=== PATIENT | female | born 2005 | race Caucasian/White ===

== ENCOUNTER 2024-03-17 03:37 | Emergency (ER) | payer MEDICAID, OTHER ==
[~2024-03-17 03:37] MED LIST: PREN-68 PO
[2024-03-17 04:12] LABS: MEAN CORPUSCULAR HEMOGLOBIN 31.4 pg (27.0-33.0); MEAN CORPUSCULAR HGB CONC 35.4 g/dL (32.0-36.0); MEAN CORPUSCULAR VOLUME 88.8 fL (80-100); RED BLOOD CELL COUNT(AUTO) 4.39 MIL/uL (4.00-5.50); RED CELL DISTRIBUTION WIDTH 11.8 % (11.0-15.5); WHITE BLOOD COUNT (AUTO) 8.2 K/uL (4.8-10.8)
[2024-03-17 04:17] LABS: APPEARANCE,URINE CLEAR (CLEAR); BILIRUBIN,URINE NEGATIVE (NEGATIVE); COLOR,URINE LIGHT-YELLOW (YELLOW); GLUCOSE, URINE (UA) NEGATIVE (NEGATIVE); KETONES,URINE 5 mg/dL (NEGATIVE); LEUKOCYTE ESTERASE ,URINE NEGATIVE Leu/uL (NEGATIVE); NITRATE,URINE NEGATIVE (NEGATIVE); OCCULT BLOOD,URINE NEGATIVE (NEGATIVE); PH,URINE 5.5 (5.0-8.0); PROTEIN,URINE NEGATIVE (NEGATIVE); UROBILINOGEN,URINE 0.2 mg/dL (0.2-1.0)
[2024-03-17 04:18] LABS: ADD UA MICROSCOPIC YES
[2024-03-17 04:19] LABS: HCG,QUALITATIVE URINE NEGATIVE (NEGATIVE)
[2024-03-17 04:20] LABS: BACTERIA,URINE FEW /HPF (None Seen); MUCUS,URINE RARE LPF (None Seen); RBC,URINE 0-1 /HPF (0-1); SQUAMOUS EPITHELIAL CELL,UR RARE /HPF (0-2)
[2024-03-17 04:22] LABS: CARBON DIOXIDE 22 mmol/L (21-32); CHLORIDE 104 mmol/L (101-111); CREATININE 0.6 mg/dL (0.5-1.0); GLOMERULAR FILTR. RATE CALC 131 mL/min (>90); GLUCOSE,RANDOM 88 mg/dL (70-105); POTASSIUM 3.4 mmol/L (3.5-5.1); SODIUM SERUM 139 mmol/L (136-145); UREA NITROGEN, BLOOD 5 mg/dL (7-18)
[2024-03-17 04:24] LABS: AMPHET/METH SCREEN,URINE NEGATIVE (NEGATIVE); BARBITURATE SCREEN, URINE NEGATIVE (NEGATIVE); BENZODIAZEPINES SCREEN,URINE NEGATIVE (NEGATIVE); CANNABINOID SCREEN,URINE NEGATIVE (NEGATIVE); COCAINE SCREEN,URINE POSITIVE (NEGATIVE); OPIATE SCREEN,URINE NEGATIVE (NEGATIVE); PHENCYCLIDINE SCREEN,URINE NEGATIVE (NEGATIVE)
[2024-03-17 04:26] LABS: ALCOHOL, BLOOD 247 mg/dL (0-10)
[2024-03-17 04:27] LABS: ACETAMINOPHEN < 1 mcg/mL (10-30); SALICYLATE < 2.8 mg/dL (2.8-20.0)
--- NOTE | 2024-03-17 04:32 | ERN ---
ED Note History of Present Illness Stated Complaint: POSSIBLE ALCOHOL POISONING OR DRUG INTOXICATION Chief Complaint: Other Problems Time Seen by MD: 03:50 Dictation: This is a 19-year-old female who apparently was with her boyfriend partying and consuming alcohol. She began getting agitated and tearful and her boyfriend called the patient's sister to come and get her. They brought her to the [facility] room for evaluation Allergies: Coded Allergies: No Known Drug Allergies (Unverified Allergy, Unknown, 07/15/19) no known drug allergies Home Meds Reported Medications Vit/Iron Fumarate/FA ( Tablet) 1 Each Tablet, 1 EACH PO HS, TAB 07/16/19 Past Medical History Past Medical History: No Pertinent History, Unknown Surgical History: Unknown Social History: Drugs, ETOH RN Note Reviewed/Agreed w/PFSH: Yes Review of System Dictation Constitutional: Negative for fever,chills, and weight loss Eyes: Negative for injury, pain,redness, and discharge ENT: Negative for injury,pain or swelling Cardiovascular: Negative for chest pain, palpitations, and edema Respiratory: Negative for shortness of breath, cough, and wheezing, Abdomen/GI: Negative for abdominal pain, nausea, vomiting, diarrhea, and constipation Back: Negative for injury and pain : Negative for injury, bleeding and discharge MS/Extremity: Negative for injury and deformity Skin: Negative for rash, and discoloration Neuro: Negative for headache, weakness, numbness, tingling, and seizure Psych: Negative for suicide ideation, homicidal ideation, and hallucinations Initial Vital Sign VS Vital Signs Date Time Temp Pulse Resp B/P (MAP) Pulse Ox O2 Delivery O2 Flow Rate FiO2 03/17/24 04:00 98.2 77 28 116/80 100 Room Air* 0 21 Physical Exam Dictation General: awake, alert, NAD Head/Face: Normocephalic, atraumatic Eyes: PERRL, EOMI, vision at baseline ENT: oral cavity clear, TMs clear, no signs of infection Neck: Trachea midline, supple, no nuchal rigidity Cardiovascular: RRR, normal S1/S2, No MRGs, no JVD Respiratory: CTAB, no respiratory distress, No rales or wheezes Abdomen: Soft, non-tender, non-distended, normal bowel sounds, no guarding or rebound. Skin: Warm, dry, normal turgor, no rash MS/Extremity: Pulses equal, no cyanosis, neurovascular intact, FROM Neuro: COAx4, GCS 15, strength 5/5, CN 2-12 intact, normal cerebellar exam, normal gait, Psych: Normal behavior, mood, and affect normal Extremities-trace edema without any palpable cords, Homans sign is negative Results (Laboratory/Radiology) Laboratory/Radiology Laboratory Tests Test 03/17/24 03:53 03/17/24 03:58 White Blood Count 8.2 K/uL (4.8-10.8) Red Blood Count 4.39 MIL/uL (4.00-5.50) Hemoglobin 13.8 g/dL (12.0-16.0) Hematocrit 39.0 % (36-48) Mean Corpuscular Volume 88.8 fL (80-100) Mean Corpuscular Hemoglobin 31.4 pg (27.0-33.0) Mean Corpuscular Hemoglobin Concent 35.4 g/dL (32.0-36.0) Red Cell Distribution Width 11.8 % (11.0-15.5) Platelet Count 305 K/uL (130-400) Mean Platelet Volume 9.4 fL (7.5-10.5) Nucleated Red Blood Cells 0.0 % (0.0-0.19) Sodium Level 139 mmol/L (136-145) Potassium Level 3.4 mmol/L (3.5-5.1) L Chloride Level 104 mmol/L (101-111) Carbon Dioxide Level 22 mmol/L (21-32) Blood Urea Nitrogen 5 mg/dL (7-18) L Creatinine 0.6 mg/dL (0.5-1.0) Glomerular Filtration Rate Calc 131 mL/min (>90) Random Glucose 88 mg/dL (70-105) Total Calcium 8.8 mg/dL (8.5-10.1) Salicylates Level < 2.8 mg/dL (2.8-20.0) L Acetaminophen Level < 1 mcg/mL (10-30) L Serum Alcohol 247 mg/dL (0-10) H Urine Color LIGHT-YELLOW (YELLOW) Urine Appearance CLEAR (CLEAR) Urine pH 5.5 (5.0-8.0) Urine Specific [place] 1.010 (1.001-1.031) Urine Protein NEGATIVE mg/dL (NEGATIVE) Urine Glucose (UA) NEGATIVE mg/dL (NEGATIVE) Urine Ketones 5 mg/dL (NEGATIVE) H Urine Occult Blood NEGATIVE (NEGATIVE) Urine Nitrate NEGATIVE (NEGATIVE) Urine Bilirubin NEGATIVE mg/dL (NEGATIVE) Urine Urobilinogen 0.2 mg/dL (0.2-1.0) Urine Leukocyte Esterase NEGATIVE [place]/uL Urine RBC 0-1 /HPF (0-1) Urine WBC 2-5 /HPF (0-1) H Urine Squamous Epithelial Cells RARE /HPF (0-2) Urine Bacteria FEW /HPF (None Seen) Urine HCG, Qualitative NEGATIVE (NEGATIVE) Urine Opiates Screen NEGATIVE (NEGATIVE) Urine Barbiturates Screen NEGATIVE (NEGATIVE) Urine Phencyclidine Screen NEGATIVE (NEGATIVE) Urine Amphetamines Screen NEGATIVE (NEGATIVE) Urine Benzodiazepines Screen NEGATIVE (NEGATIVE) Urine Cocaine Screen POSITIVE (NEGATIVE) H Urine Marijuana (THC) Screen NEGATIVE (NEGATIVE) Labs Reviewed?: Yes ED Course ED Course Orders Procedure Category Date Status Time Cbc Without LAB 03/17/24 Complete Differential 03:54 Alcohol, Blood LAB 03/17/24 Complete 03:54 Drug Screen Urine LAB 03/17/24 Complete 03:54 Urinalysis Profile LAB 03/17/24 Complete 03:54 Acetaminophen LAB 03/17/24 Complete 03:54 Salicylate LAB 03/17/24 Complete 03:54 ,Urine Test LAB 03/17/24 Complete 03:54 Basic Metabolic Panel LAB 03/17/24 Complete 03:54 0.9%Nacl 1000ml (Ns PHA 03/17/24 In Process 1000ml) 05:00 Current Medications Medications (Trade) Dose Ordered Sig/Jimy Route PRN Reason Start Time Stop Time Status Last Admin Dose Admin Sodium Chloride 1,000 ml @ 125 mls/hr ONCE ONCE IV 03/17/24 05:00 03/17/24 12:59 03/17/24 05:02 Vital Signs Date Time Temp Pulse Resp B/P (MAP) Pulse Ox O2 Delivery O2 Flow Rate FiO2 03/17/24 07:14 98.2 98 18 96/59 98 Room Air* 0 21 03/17/24 06:28 91 19 104/62 100 Room Air* 0 21 03/17/24 05:30 88 28 99/58 100 Room Air* 0 21 03/17/24 04:00 98.2 77 28 116/80 100 Room Air* 0 21 We will perform diagnostic labs, advanced imaging and administer medications according to the patient's complaint. Once the results are available, will review and personally interpreted the labs to rule out any acute life- threatening emergency the trach require immediate intervention and treatment. I will then re-evaluate the patient after treatment and diagnostic exams have return to determine whether the patient requires any further testing, can safely be discharged home or need further admission to hospital for additional treatment and evaluation. 4:31 a.m. labs reviewed CBC is within normal limits. BNP 7 showed potassium of 3.4. Urine drug screen partially reported is positive for cocaine urinalysis is negative and urine test is negative Medical Decision Making MDM CC: Alcohol intoxication Historian: Father at bedside, patient is altered unable to provide a history Limitations by social determinants of health: None Vitals are stable Patient is clinically intoxicated. She endorses heavy alcohol use earlier today. Lab work shows mild low potassium, otherwise unremarkable. Alcohol level elevated also cocaine positive. Consistent with symptoms. Patient was monitored for 4 hours in the ER. She has sobered up was ambulatory and able to make decisions. We will DC to PCP follow up as needed. Problem List Problem List: (1) Alcohol intoxication (2) Cocaine intoxication (3) Hypokalemia DX & DISP Disposition: Discharge Departure Impression: Primary Impression: Alcohol intoxication Additional Impressions: Cocaine intoxication, Hypokalemia Condition: Stable Additional Instructions: Your symptoms are consistent with alcohol and cocaine intoxication. The rest of your labs are stable other than a mild low potassium. Be sure to eat a healthy diet today. If plenty of fruits and vegetables. Drink plenty of liquids. You can take [id number] Tylenol (1000 mg) or ibuprofen (600 mg) for pain or discomfort. Please follow up with the primary doctor as needed. Referrals: NASH ROJAS MD (PCP) RENÉ SNEED MD Mar 17, 2024 04:32 LA CARRILLO DO Mar 17, 2024 07:37
[2024-03-17] MEDS: 0.9%NACL 1000ML 1,000 ML IV ONE (05:02)
[2024-03-17 07:14] VITALS: BP 96/59; PULSE 98; RESP 18; TEMP 98.2; O2SAT 98
== END 2024-03-17 07:57 | disposition home or self-care (01) ==
LOC: EDH 03:37
DX: F14.129 Cocaine abuse with intoxication, unspecified (principal); F10.129 Alcohol abuse with intoxication, unspecified; E87.6 Hypokalemia; Z79.899 Other long term (current) drug therapy; Y90.9 Presence of alcohol in blood, level not specified
CPT/HCPCS: 99283; 96360; 80048; 80305; 85027; 81025; 36415; 81001; G0481; J7030; 96361